=== PATIENT | female | born 1950 | race Caucasian/White ===

== ENCOUNTER 2022-09-13 12:36 | Outpatient (CLI) | payer MEDICARE, BC ==
[2022-09-13 14:03] LABS: Anion Gap 17 mmol/L (10-20); BUN (Urea Nitrogen) 23 mg/dL (9.8-20.1); Calc. Creatinine Clearance 0 mL/min (70-130); Calcium 9.8 mg/dL (7.8-10.44); Carbon Dioxide 22 mmol/L (23-31); Chloride 109 mmol/L (98-107); Estimated GFR 66; Glucose 208 mg/dL (80-115); Potassium 4.5 mmol/L (3.5-5.1); Sodium 143 mmol/L (136-145)
== END 2022-09-13 12:37 | disposition home or self-care (01) ==
LOC: LABBT 12:36
PROVIDERS: ATTEND Surgery
DX: Z01.818 Encounter for other preprocedural examination (principal); C54.1 Malignant neoplasm of endometrium
CPT/HCPCS: 80048; 93005; 93010

== ENCOUNTER 2022-09-16 11:16 | Day surgery (SDC) | payer MEDICARE, BC ==
[2022-09-12 15:10] VITALS: BMI 29.9
[2022-09-16] MEDS ORDERED: fentaNYL PF 100 MCG/2 ML SYRINGE ONE (12:50)
[2022-09-16] MEDS ORDERED: PROPOFOL 40 ML ONE (12:50)
[2022-09-16] MEDS ORDERED: Levofloxacin 500 mg/D5W 100 ml Premix Bag ONE (13:01)
[2022-09-16] MEDS ORDERED: Bupivacaine/Epinephrine 0.25% 30 ML VIAL ONE (13:16)
== END 2022-09-16 14:35 | disposition home or self-care (01) ==
LOC: SDC 11:16
PROVIDERS: ATTEND Surgery
PROC: 0JH60WZ Insertion of Totally Implantable Vascular Access Device into Chest Subcutaneous Tissue and Fascia, Open Approach (ICD-10-PCS; principal; 2022-09-16)
PROC: 02HV33Z Insertion of Infusion Device into Superior Vena Cava, Percutaneous Approach (ICD-10-PCS; 2022-09-16)
DX: C54.1 Malignant neoplasm of endometrium (principal); E11.9 Type 2 diabetes mellitus without complications; I10 Essential (primary) hypertension; E03.9 Hypothyroidism, unspecified; F17.200 Nicotine dependence, unspecified, uncomplicated; Z79.84 Long term (current) use of oral hypoglycemic drugs; Z79.890 Hormone replacement therapy; Z79.899 Other long term (current) drug therapy; Z88.0 Allergy status to penicillin; Z88.2 Allergy status to sulfonamides
CPT/HCPCS: 71045; C1788; J1642; J1956; J2704

== ENCOUNTER 2023-03-28 12:29 | Outpatient (CLI) | payer MEDICARE, BC | END 2023-03-28 12:30 | disposition home or self-care (01) | LOC: ULT 12:29 | PROVIDERS: ATTEND Internal Medicine Hematology & Oncology | DX: Z01.810 Encounter for preprocedural cardiovascular examination (principal); C54.1 Malignant neoplasm of endometrium; Z79.899 Other long term (current) drug therapy; I38 Endocarditis, valve unspecified; I07.1 Rheumatic tricuspid insufficiency | CPT/HCPCS: 93306 ==

== ENCOUNTER 2024-03-02 06:56 | Day surgery (SDC) | payer MEDICARE ==
[~2024-03-02 06:56] MED LIST: EPINEPHrine 0.3 MG in Ophthalmic Irrigation Solution 500 ML IRR SCH
[2024-03-02] MEDS ORDERED: Cyclopentolate 1% Opth Drop 2 ML BOT ONE (07:34)
[2024-03-02] MEDS ORDERED: PHENYLephrine 2.5% Ophth Soln 15 ml Bottle ONE (07:35)
[2024-03-02] MEDS ORDERED: Bupivacaine 0.75% 10 ML VIAL ONE (09:24)
[2024-03-02] MEDS ORDERED: Lidocaine 4% PF 5 ML AMP ONE (09:24)
[2024-03-02] MEDS ORDERED: Maxitrol 0.1% Opth Oint 3.5 GM TUBE ONE (09:24)
[2024-03-02] MEDS ORDERED: Triamcinolone 40 MG/ML VIAL ONE (09:24)
[2024-03-02] MEDS ORDERED: fentaNYL 50 mcg/mL 1 mL Vial ONE ×2 (09:25→09:51)
[2024-03-02] MEDS ORDERED: PROPOFOL 20 ML ONE (09:25)
[2024-03-02] MEDS ORDERED: Lidocaine 1% PF 5 ML VIAL ONE (09:30)
== END 2024-03-02 10:35 | disposition home or self-care (01) ==
LOC: SDC 06:56
PROVIDERS: ATTEND Ophthalmology Retina Specialist
PROC: 08T43ZZ Resection of Right Vitreous, Percutaneous Approach (ICD-10-PCS; principal; 2024-03-02)
DX: H43.11 Vitreous hemorrhage, right eye (principal); E11.3591 Type 2 diabetes mellitus with proliferative diabetic retinopathy without macular edema, right eye; I10 Essential (primary) hypertension; E78.5 Hyperlipidemia, unspecified; E03.0 Congenital hypothyroidism with diffuse goiter; Z79.899 Other long term (current) drug therapy; Z79.84 Long term (current) use of oral hypoglycemic drugs
CPT/HCPCS: 67040; J0171; J2704; J3010; J3301; J3490